=== PATIENT | female | born 1960 | race Caucasian/White ===

== ENCOUNTER 2024-10-27 18:28 | Emergency (ER) | payer MEDICARE, MEDICAID ==
[2024-10-27 19:08] LABS: BASOPHILS ABSOLUTE AUTO 0.03 10^3/uL (0.00-0.10); BASOPHILS PERCENT AUTO 0.5 % (0.0-1.0); EOSINOPHILS ABSOLUTE AUTO 0.06 10^3/uL (0.10-0.30); EOSINOPHILS PERCENT AUTO 1.1 % (1.0-3.0); HEMATOCRIT 38.3 % (37.0-47.0); HEMOGLOBIN 13.2 g/dL (12.0-16.0); IMMATURE GRAN ABSOLUTE AUTO 0.07 10^3/uL (0.00-0.04); IMMATURE GRAN PERCENT AUTO 1.2 % (0.0-0.4); LYMPHOCYTES ABSOLUTE AUTO 0.95 10^3/uL (1.00-4.00); LYMPHOCYTES PERCENT AUTO 16.8 % (20.0-40.0); MEAN CORPUSCULAR HEMOGLOBIN 33.9 pg (27.0-31.0); MEAN CORPUSCULAR HGB CONC 34.5 g/dL (32.0-36.0); MEAN CORPUSCULAR VOLUME 98.5 fL (82.0-92.0); MEAN PLATELET VOLUME 9.3 fL (7.4-10.4); MONOCYTES ABSOLUTE AUTO 0.66 10^3/uL (0.10-0.80); MONOCYTES PERCENT AUTO 11.6 % (2.0-8.0); NEUTROPHILS PERCENT AUTO 68.8 % (50.0-70.0); PLATELET COUNT,PLT 201 10^3/uL (150-400); RED BLOOD CELL COUNT 3.89 10^6/uL (3.80-5.50); RED CELL DISTRIBUTION WIDTH 12.1 % (11.5-14.5); WHITE BLOOD CELL COUNT,WBC 5.67 10^3/uL (5.00-10.00)
[2024-10-27] MEDS: Sodium Chloride 0.9% 1,000 ML IV ONE (19:15)
[2024-10-27 19:28] LABS: ALBUMIN 2.82 g/dL (3.40-5.00); ANION GAP 17.6 mmol/L (5-15); BILIRUBIN TOTAL 0.5 mg/dL (0.2-1.0); CALCIUM 8.6 mg/dL (8.7-10.3); CARBON DIOXIDE,CO2 25.6 mmol/L (21.0-32.0); CREATININE 0.53 mg/dL (0.51-1.17); EST CRCL DRUG DOSING (CG) 90.16 mL/min
[2024-10-27 19:32] LABS: POTASSIUM,K 2.2 mmol/L (3.5-5.1)
[2024-10-27] MEDS: Potassium Chloride 20 MEQ in Premix Bag 1 BAG IV ONE (19:42)
[2024-10-27] MEDS: Ondansetron 4 MG/2 ML SDV IVPUSH ONE (19:57)
[2024-10-27] MEDS: Diphtheria,Pertussis(Acell),Tetanus Vaccine 0.5 ML Syringe ONE (20:25)
[2024-10-27] MEDS: levETIRAcetam 500 MG/5 ML SDV IVPUSH ONE (20:25)
[2024-10-27] MEDS: Tranexamic Acid in NACL,ISO-OS 1,000 MG in Premix Bag 1 BAG IV SCH (20:27)
[2024-10-27] MEDS: Sodium Chloride 0.9% 1,000 ML ONE (20:45)
[2024-10-27] MEDS: Desmopressin 20 MCG in Sodium Chloride 0.9% 50 ML IV ONE (20:45)
[2024-10-27] MEDS: Ondansetron 4 MG/2 ML SDV ONE ×2 (21:13→21:14)
[2024-10-27] MEDS: Sodium Chloride 0.9% 100 ML ONE (21:14)
[2024-10-27] MEDS: Desmopressin 4 MCG/1 ML Amp ONE (21:14)
== END 2024-10-27 21:00 ==
LOC: KA.ED 18:28
DX: S06.6X1A Traumatic subarachnoid hemorrhage with loss of consciousness of 30 minutes or less, initial encounter (principal); S06.5X1A Traumatic subdural hemorrhage with loss of consciousness of 30 minutes or less, initial encounter; S02.19XA Other fracture of base of skull, initial encounter for closed fracture; S01.01XA Laceration without foreign body of scalp, initial encounter; E87.6 Hypokalemia; F10.129 Alcohol abuse with intoxication, unspecified; W10.8XXA Fall (on) (from) other stairs and steps, initial encounter; Y90.7 Blood alcohol level of 200-239 mg/100 ml; Z23 Encounter for immunization
CPT/HCPCS: 12001; 36415; 70450; 72125; 80053; 80307; 82947; 84484; 85025; 90471; 90715; 93005; 96365; 96368; 96375; 99284; 99285-25; J1953; J2405; J2597; J3480; J7030